=== PATIENT | male | born 1985 | race Hispanic/Latino ===

== ENCOUNTER 2020-01-14 12:47 | Inpatient (IN) | payer SELFPAY ==
[2020-01-14 13:57] LABS: Absolute Lymphocytes (CBC) 1.6 K/uL (0.7-4.9); Basophils % 0.2 % (0-1.3); Hematocrit 49.8 % (39.6-49.0); Lymphocytes % 8.4 % (15.3-44.8); MPV 9.4 fL (7.6-11.3); RBC Red Blood Cell Count 5.87 M/uL (4.33-5.43)
[2020-01-14 14:09] LABS: Albumin 4.3 g/dL (3.4-5.0); Bilirubin Direct 0.4 mg/dL (0-0.2); Bilirubin Total 1.3 mg/dL (0.2-1.0); Protein, Total 8.8 g/dL (6.4-8.2)
[2020-01-14] MEDS ORDERED: MORPHINE 4 MG/ML SYR ONE (14:12)
[2020-01-14] MEDS ORDERED: ACETAMINOPHEN 500 MG TAB ONE (14:13)
[2020-01-14] MEDS ORDERED: NA CHLORIDE 0.9% 1,000 ML ONE (14:13)
[2020-01-14] MEDS ORDERED: ONDANSETRON 4 MG/2 ML VIAL ONE (14:13)
[2020-01-14] MEDS ORDERED: CEFTRIAXONE/SWI 1gm 1 GM/10 ML SYR ONE (15:48)
[2020-01-14] MEDS ORDERED: METRONIDAZOLE 500mg IVPB 500 MG/100 ML BAG IV ONE (15:48)
--- NOTE | 2020-01-14 17:31 | RAD REPORT ---
EXAM DESCRIPTION: CT - Abdomen Pelvis W Contrast - 01/14/2020 4:55 pm CLINICAL HISTORY: abd pain COMPARISON: No comparisons TECHNIQUE: Biphasic, helical CT imaging of the abdomen and pelvis was performed following 100 ml non -ionic IV contrast. Oral contrast was given. All CT scans are performed using dose optimization technique as appropriate and may include automated exposure control or mA/KV adjustment according to patient size. FINDINGS: A 5 millimeter right lower lobe pulmonary nodule is present generally not significant in a patient this age. No pericardial effusion. The liver, spleen, and pancreas show no suspicious findings. Gallbladder and biliary tree are also wi thout suspicious finding. Symmetric renal function is seen with no hydronephrosis or suspicious renal mass. No pyelonephritis o r acute parenchymal process. No bladder abnormalities. No adrenal abnormalities. No gastric dilatation or gastric wall thickening. No dilated large or small bowel. The appendix is no rmal. No acute colon finding seen. In the posterior and bilateral fatty tissues adjacent to the anus there is increased soft tissue with congestion and edema of the fat. No clearly defined fluid collect ions seen. Developing perirectal abscess is most likely. No free air or pneumatosis. Elsewhere no in flammatory stranding. No hernia, mass or bulky lymphadenopathy. No suspicious bony findings. IMPRESSION: In the perianal fatty tissues along the posterior and each lateral margin of the anus, t here is increased soft tissue attenuation with stranding and edema of the fatty tissues. This is most likely a developing perirectal abscess. This may not yet be a clearly drainable fluid co llection.
--- NOTE | 2020-01-14 17:42 | EDPHYS ---
Physician Documentation [facility] Name: Oniel Harris Age: 34 yrs Sex: Male : 1985 Arrival Date: 01/14/2020 Time: 12:51 Bed 16 Private MD: ED Physician Ranjan Samuels HPI: 01/14 14:02 This 34 yrs old Male presents to ER via Ambulatory with complaints of rn Constipation, Abdominal Pain. 14:02 The patient presents with abdominal pain. rn 14:02 Onset: The symptoms/episode began/occurred 2 day(s) ago. The symptoms do not radiate. rn Associated signs and symptoms: Pertinent positives: constipation, fever, Pertinent negatives: blood in stools, testicular pain, vomiting blood. The symptoms are described as crampy, intermittent. Modifying factors: The symptoms are alleviated by nothing, the symptoms are aggravated by pressure. Severity of pain: At its worst the pain was moderate in the emergency department the pain is unchanged. The patient has not experienced similar symptoms in the past. Reports 2 days of fever, constipation, abd pain, and now rectal pain. Reports hurts to use bathroom. No blood in stool or when wipes. . Historical: - Allergies: 12:58 No Known Allergies; aj1 - Home Meds: 12:58 None [Active]; aj1 - PMHx: 12:58 None; aj1 - PSHx: 12:59 wrist surgery; aj1 - Immunization history:: Flu vaccine is not up to date. - Coronavirus screen:: The patient has NOT traveled to [place] in the past 14 days. - Social history:: Smoking status: Patient/guardian denies using tobacco. - Family history:: not pertinent. - Ebola Screening: : Patient denies travel to an Ebola-affected area in the 21 days before illness onset. - Hospitalizations: : No recent hospitalization is reported. ROS: 14:02 Constitutional: + fever Eyes: Negative for injury, pain, redness, and discharge, Neck: rn Negative for injury, pain, and swelling, Cardiovascular: Negative for chest pain, palpitations, and edema, Respiratory: Negative for shortness of breath, cough, wheezing, and pleuritic chest pain, Abdomen/GI: + abd pain and constipation, + rectal pain MS/Extremity: Negative for injury and deformity, Skin: Negative for injury, rash, and discoloration, Neuro: Negative for headache, weakness, numbness, tingling, and seizure. Exam: 14:02 Constitutional: This is a well developed, well nourished patient who is awake, alert, rn and in no acute distress. Head/Face: Normocephalic, atraumatic. Cardiovascular: Tachycardic, regular, intact distal pulses Respiratory: No increased work of breathing, no retractions or nasal flaring. Abdomen/GI: soft, mild lower abd tenderness, no reobund/distension, + perirectal tenderness 9 o'clock position on digital rectal exam, no external hemorrhoids Skin: Warm, dry MS/ Extremity: Pulses equal, no cyanosis. Neurovascular intact. Full, normal range of motion. Equal circumference. Neuro: Awake and alert, GCS 15, oriented to person, place, time, and situation. Cranial nerves II-XII grossly intact. Motor strength 5/5 in all extremities. Sensory grossly intact. Cerebellar exam normal. Normal gait. Vital Signs: 12:59 BP 144 / 80; Pulse 103; Resp 20; Temp 101.1; Pulse Ox 98% on R/A; Weight 105.69 kg (R); aj1 Height 5 ft. 8 in. (172.72 cm) (R); Pain 5/10; 13:51 BP 129 / 82; Pulse 103; Resp 17; Temp 103.2; Pulse Ox 96% ; lt1 14:44 BP 134 / 83; Pulse 103; Resp 20; Pulse Ox 95% on R/A; ph 16:00 BP 127 / 86; Pulse 91; Resp 18; Pulse Ox 96% on R/A; ph 16:23 Temp 99.1; ph 18:19 BP 121 / 68; Pulse 87; Resp 18; Temp 98.3; Pulse Ox 97% on R/A; ph 19:15 BP 119 / 61; Pulse 91; Resp 18; Pulse Ox 97% on R/A; ph 19:38 BP 106 / 60; Pulse 89; Resp 16; Pulse Ox 97% on R/A; lp1 12:59 Body Mass Index 35.43 (105.69 kg, 172.72 cm) aj MDM: 13:05 Patient medically screened. rn 17:39 Differential diagnosis: colitis, diverticulitis, perirectal abscess. Data reviewed: rn vital signs, nurses notes, lab test result(s), radiologic studies, CT scan, and as a result, I will admit patient. Counseling: I had a detailed discussion with the patient and/or guardian regarding: the historical points, exam findings, and any diagnostic results supporting the discharge/admit diagnosis, lab results, radiology results, the need for further work-up and treatment in the hospital. Response to treatment: the patient's symptoms have mildly improved after treatment, and as a result, I will admit patient. Admission orders: after a detailed discussion of the patient's condition and case, the admit orders are written by me. ED course: Consulted with Dr. Archer, requests abx, and NPO after midnight, ok to admit to his service. . 01/14 13:15 Order name: Basic Metabolic Panel rn 01/14 13:15 Order name: CBC with Diff rn 01/14 13:15 Order name: Hepatic Function rn 01/14 13:15 Order name: Lipase rn 01/14 13:23 Order name: Blood Culture Adult (2) rn 01/14 13:23 Order name: Lactate rn 01/14 13:23 Order name: Procalcitonin rn 01/14 14:02 Order name: Flu rn 01/14 14:04 Order name: Lactate; Complete Time: 14:20 EDNC 01/14 14:05 Order name: CBC with Automated Diff; Complete Time: 14:20 EDNC 01/14 14:12 Order name: Basic Metabolic Panel; Complete Time: 14:20 EDNC 01/14 14:12 Order name: Liver (Hepatic) Function; Complete Time: 14:20 EDNC 01/14 14:12 Order name: Lipase; Complete Time: 14:20 EDNC 01/14 14:49 Order name: Procalcitonin; Complete Time: 14:50 EDNC 01/14 13:15 Order name: IV Saline Lock; Complete Time: 13:18 rn 01/14 13:15 Order name: Labs collected and sent; Complete Time: 13:19 rn 01/14 13:15 Order name: CT Abd/Pelvis - PO and IV Contrast rn Administered Medications: 14:00 Drug: Tylenol 1000 mg Route: PO; ph 16:25 Follow up: Response: No adverse reaction ph 14:00 Drug: NS 0.9% 1000 ml Route: IV; Rate: 1000 ml; Site: left antecubital; ph 16:26 Follow up: Response: No adverse reaction; IV Status: Completed infusion ph 14:14 Drug: morphine 4 mg Route: IVP; Site: left antecubital; ph 16:24 Follow up: Response: No adverse reaction; Pain is decreased ph 15:30 Drug: Rocephin 1 grams Route: IV; Rate: calculated rate; Site: left antecubital; ph 16:26 Follow up: Response: No adverse reaction; IV Status: Completed infusion ph 15:45 Drug: Flagyl 500 mg Volume: 100 ml; Route: IVPB; Rate: 200 ml/hr; Infused Over: 30 ph mins; Site: left antecubital; 16:20 Follow up: Response: No adverse reaction; IV Status: Completed infusion ph Disposition: 01/14/20 17:41 Hospitalization ordered by Florian Archer for Inpatient Admission. Preliminary diagnosis is Perirectal abscess. - Bed requested for Telemetry/MedSurg (Inpatient). - Status is Inpatient Admission. lp1 - Condition is Stable. - Problem is new. - Symptoms have improved. Signatures: Dispatcher [employer] EDMS Maria Teresa Gao RN RN aj1 Chelsey Garcia ms, Roman, MD MD rn Pena, Laura, RN RN lp1 Melissa Bedoya RN RN ph Corrections: (The following items were deleted from the chart) 18:12 17:41 Hospitalization Ordered by Florian Archer MD for Inpatient Admission. Preliminary ms diagnosis is Perirectal abscess. Bed requested for Telemetry/MedSurg (Inpatient). Status is Inpatient Admission. Condition is Stable. Problem is new. Symptoms have improved. rn 20:01 18:12 01/14/2020 17:41 Hospitalization Ordered by Florian Archer MD for Inpatient lp1 Admission. Preliminary diagnosis is Perirectal abscess. Bed requested for Telemetry/MedSurg (Inpatient). Status is Inpatient Admission. Condition is Stable. Problem is new. Symptoms have improved. ms
--- NOTE | 2020-01-14 17:42 | ER ---
Nurse's Notes [facility] Name: Oniel Harris Age: 34 yrs Sex: Male : 1985 Arrival Date: 01/14/2020 Time: 12:51 Bed 16 Private MD: Diagnosis: Perirectal abscess Presentation: 01/14 12:53 Presenting complaint: Patient states: Via child care nurse [id number] 2 days ago he ate a spicy aj1 soup and since then he has not been able to have a bowel movement, so he drank hot milk, but now he is having a lot of rectal pain. States that he started running fever on Thursday, Patient reports right sided abdominal pain. Transition of care: patient was not received from another setting of care. Onset of symptoms was December 2019. Risk Assessment: Do you want to hurt yourself or someone else? Patient reports no desire to harm self or others. Initial Sepsis Screen: Does the patient meet any 2 criteria? Temp <36.0*C (96.8*F)) or > 38.3*C (100.9*F). HR > 90 bpm. Does the patient have a suspected source of infection? Yes: Acute abdominal pain. Care prior to arrival: None. 12:53 Method Of Arrival: Ambulatory aj1 12:53 Acuity: GUILLERMO 2 aj1 Triage Assessment: 12:59 General: Appears in no apparent distress. uncomfortable, Behavior is calm, cooperative, aj1 appropriate for age. Pain: Complains of pain in abdomen Pain currently is 5 out of 10 on a pain scale. Neuro: Level of Consciousness is awake, alert, obeys commands. Cardiovascular: Patient's skin is warm and dry. Respiratory: Airway is patent Respiratory effort is even, unlabored, Respiratory pattern is regular, symmetrical. GI: Reports lower abdominal pain, upper abdominal pain, nausea, vomiting. Historical: - Allergies: 12:58 No Known Allergies; aj1 - Home Meds: 12:58 None [Active]; aj1 - PMHx: 12:58 None; aj1 - PSHx: 12:59 wrist surgery; aj1 - Immunization history:: Flu vaccine is not up to date. - Coronavirus screen:: The patient has NOT traveled to [place] in the past 14 days. - Social history:: Smoking status: Patient/guardian denies using tobacco. - Family history:: not pertinent. - Ebola Screening: : Patient denies travel to an Ebola-affected area in the 21 days before illness onset. - Hospitalizations: : No recent hospitalization is reported. Screenin:45 Abuse screen: Denies threats or abuse. Denies injuries from another. Nutritional ph screening: No deficits noted. Tuberculosis screening: No symptoms or risk factors identified. Fall Risk None identified. Assessment: 13:45 General: Appears in no apparent distress. uncomfortable, well groomed, Behavior is ph calm, cooperative, appropriate for age, Reports fever for 2-3 days. Pain: Complains of pain in buttocks and abdomen. Neuro: Level of Consciousness is awake, alert, obeys commands, Oriented to person, place, time, situation. Cardiovascular: Capillary refill < 3 seconds in bilateral fingers Patient's skin is warm and dry. Respiratory: Airway is patent Respiratory effort is even, unlabored. GI: Abdomen is round non-distended, Reports lower abdominal pain, nausea, vomiting. GI: Reports rectal pain. : No signs and/or symptoms were reported regarding the genitourinary system. Derm:. Musculoskeletal: Circulation, motion, and sensation intact. Range of motion: intact in all extremities. 14:43 Reassessment: Patient appears in no apparent distress at this time. Patient and/or ph family updated on plan of care and expected duration. Pain level reassessed. Patient is alert, oriented x 3, equal unlabored respirations, skin warm/dry/pink. Pt resting quietly, awaiting CT scan. 16:15 Reassessment: Patient appears in no apparent distress at this time. Patient and/or ph family updated on plan of care and expected duration. Pain level reassessed. Patient is alert, oriented x 3, equal unlabored respirations, skin warm/dry/pink. 17:30 Reassessment: Patient appears in no apparent distress at this time. Patient and/or ph family updated on plan of care and expected duration. Pain level reassessed. Patient is alert, oriented x 3, equal unlabored respirations, skin warm/dry/pink. 18:30 Reassessment: Patient appears in no apparent distress at this time. Patient and/or ph family updated on plan of care and expected duration. Pain level reassessed. Patient is alert, oriented x 3, equal unlabored respirations, skin warm/dry/pink. 19:15 Reassessment: Patient appears in no apparent distress at this time. Patient is alert, lp1 oriented x 3, equal unlabored respirations, skin warm/dry/pink. Patient denies any needs at this time; aware of admission. Vital Signs: 12:59 BP 144 / 80; Pulse 103; Resp 20; Temp 101.1; Pulse Ox 98% on R/A; Weight 105.69 kg (R); aj1 Height 5 ft. 8 in. (172.72 cm) (R); Pain 5/10; 13:51 BP 129 / 82; Pulse 103; Resp 17; Temp 103.2; Pulse Ox 96% ; lt1 14:44 BP 134 / 83; Pulse 103; Resp 20; Pulse Ox 95% on R/A; ph 16:00 BP 127 / 86; Pulse 91; Resp 18; Pulse Ox 96% on R/A; ph 16:23 Temp 99.1; ph 18:19 BP 121 / 68; Pulse 87; Resp 18; Temp 98.3; Pulse Ox 97% on R/A; ph 19:15 BP 119 / 61; Pulse 91; Resp 18; Pulse Ox 97% on R/A; ph 19:38 BP 106 / 60; Pulse 89; Resp 16; Pulse Ox 97% on R/A; lp1 12:59 Body Mass Index 35.43 (105.69 kg, 172.72 cm) aj1 ED Course: 12:51 Patient arrived in ED. ag5 12:57 Triage completed. aj1 12:59 Arm band placed on. aj1 13:05 Ranjan Samuels MD is Attending Physician. rn 13:05 Melissa Bedoya, BRYAN is Primary Nurse. ph 13:15 Initial lab(s) drawn, by me, sent to lab. First set of blood cultures drawn by me, EKG lt1 done, by ED staff. 13:50 Inserted saline lock: 20 gauge in left antecubital area, using aseptic technique. lt1 14:45 Patient has correct armband on for positive identification. Placed in gown. Bed in low ph position. Call light in reach. Side rails up X 1. laborer bituminous paving on. Pulse ox on. NIBP on. 16:19 No provider procedures requiring assistance completed. ph 16:55 CT completed. Patient tolerated procedure well. Patient moved back from CT. mw3 17:39 Florian Archer MD is Hospitalizing Provider. rn 19:38 Patient admitted, IV remains in place. lp1 Administered Medications: 14:00 Drug: Tylenol 1000 mg Route: PO; ph 16:25 Follow up: Response: No adverse reaction ph 14:00 Drug: NS 0.9% 1000 ml Route: IV; Rate: 1000 ml; Site: left antecubital; ph 16:26 Follow up: Response: No adverse reaction; IV Status: Completed infusion ph 14:14 Drug: morphine 4 mg Route: IVP; Site: left antecubital; ph 16:24 Follow up: Response: No adverse reaction; Pain is decreased ph 15:30 Drug: Rocephin 1 grams Route: IV; Rate: calculated rate; Site: left antecubital; ph 16:26 Follow up: Response: No adverse reaction; IV Status: Completed infusion ph 15:45 Drug: Flagyl 500 mg Volume: 100 ml; Route: IVPB; Rate: 200 ml/hr; Infused Over: 30 ph mins; Site: left antecubital; 16:20 Follow up: Response: No adverse reaction; IV Status: Completed infusion ph Outcome: 17:41 Decision to Hospitalize by Provider. rn 19:36 Admitted to Tele room 412, with chart, Report called to BRYAN Dukes lp1 19:36 Condition: stable 19:36 Instructed on the need for admit. 20:01 Patient left the ED. lp1 Signatures: Maria Teresa Gao RN RN aj1 Ranjan Samuels MD MD rn Pena, Laura, RN RN lp1 Melissa Bedoya RN RN Bessy Urban mw3 Devaughn Resendiz Delmy Verdugo [facility]
[2020-01-14] MEDS ORDERED: MORPHINE 4 MG/ML SYR IV PRN (20:14)
[2020-01-14] MEDS: D5 0.45 NS 1,000 ML IV SCH (20:14)
[2020-01-14] MEDS ORDERED: ONDANSETRON 4 MG/2 ML VIAL IV PRN (20:14)
[2020-01-14] MEDS: Ciprofloxacin 200mg IV 200 MG/100 ML IV.SOLN. IV SCH (21:51)
[2020-01-14] MEDS ORDERED: ACETAMINOPHEN 325 MG TABLET PO PRN (22:36)
[2020-01-14 23:21] VITALS: BMI 35.4
[2020-01-15] MEDS ORDERED: NA CHLORIDE 0.9% 500 ML IV ONE (00:21)
[2020-01-15] MEDS: METRONIDAZOLE 500mg IVPB 500 MG/100 ML BAG IV SCH ×3 (00:29→16:14)
[2020-01-15] MEDS: D5 0.45 NS 1,000 ML IV SCH ×4 (04:14→20:14)
[2020-01-15 05:46] LABS: Absolute Lymphocytes (CBC) 1.8 K/uL (0.7-4.9); Basophils % 0.3 % (0-1.3); Hematocrit 43.2 % (39.6-49.0); Lymphocytes % 10.3 % (15.3-44.8); MPV 9.1 fL (7.6-11.3); RBC Red Blood Cell Count 5.03 M/uL (4.33-5.43)
[2020-01-15 06:02] LABS: Potassium 4.2 mmol/L (3.5-5.1)
[2020-01-15] MEDS ORDERED: Ringers Lactate 1,000 ML IV ONE (08:33)
[2020-01-15] MEDS: Ciprofloxacin 200mg IV 200 MG/100 ML IV.SOLN. IV SCH ×2 (09:00→20:24)
[2020-01-15] MEDS ORDERED: METRONIDAZOLE 500mg IVPB 500 MG/100 ML BAG IV ONE (09:37)
[2020-01-15] MEDS ORDERED: CIPROFLOXACIN 400mg IV 400 MG/200 ML BAG IV ONE (09:37)
[2020-01-15] MEDS ORDERED: MIDAZOLAM HCL 2 MG/2 ML INJ ONE (09:53)
[2020-01-15] MEDS ORDERED: ONDANSETRON 4 MG/2 ML VIAL ONE (09:53)
[2020-01-15] MEDS ORDERED: LIDOCAINE 1% MPF 5 ML VIAL ONE (09:53)
[2020-01-15] MEDS ORDERED: propofoL 200 MG/20 ML VIAL IV ONE (09:53)
[2020-01-15] MEDS ORDERED: FENTANYL CITR 100 MCG/2 ML ONE (09:53)
[2020-01-15] MEDS ORDERED: KETOROLAC 30 MG/ML INJ ONE (10:19)
[2020-01-15] MEDS ORDERED: BUPIVACAINE 0.5% PF 10 ML VIAL ONE (10:32)
--- NOTE | 2020-01-15 10:37 | P.OP ---
Preoperative diagnosis: Jessica-Rectal Abscess Postoperative diagnosis: same Primary procedure: EUA, Rigid Procto, I and D and Debridement Horseshoe Jessica- Rectal Abscess Anesthesia: General Estimated blood loss: min Specimen: pus Findings: as above Complications: None Transferred to: Recovery Room Condition: Good
--- NOTE | 2020-01-15 11:03 | OP ---
Date of Procedure: 01/15/2020 Surgeon: Florian Archer MD Preoperative Diagnosis: Perirectal abscess. Postoperative Diagnosis: Perirectal abscess. Procedures: Exam under anesthesia, rigid proctoscopy, incision and drainage and debridement of a hor seshoe perirectal abscess. Estimated Blood Loss: Minimal. Specimens: Pus. Findings: As above. Anesthesia: General. Complications: None. Disposition: Patient tolerated the procedure, was in stable condition and taken to Recovery in good general condition. Procedure In Detail: The patient was brought to the OR and placed in supine position. General anest hesia was begun. Patient was prepped and draped in usual sterile fashion in the lithotomy position. Exam under anesthesia revealed some induration toward the posterior midline on the left side and rig id proctoscopy not reveal any other evidence of disease. As I was unsure exactly where the abscess w as, we used 18-gauge needle and 10 mL syringe and in the posterior midline I was able to aspirate it. The incision was made slightly on the left side. Subcutaneous tissue divided. Then, there was a h orseshoe abscess with large amount of pus. Under pressure, it was evacuated, it was fairly deep. Cu ltures were done. Wound irrigated. Bleeding controlled with cautery. The wet-to-dry normal saline dressing change applied. Marcaine 0.5% was infiltrated for postop pain control. Patient tolerated the procedure, was in stable condition and taken to Recovery in good general condition. /MODL Voice ID: [id number] Report ID: [id number]
[2020-01-15] MEDS ORDERED: HYDROMORPHONE HCL 1 MG/ML INJ IV PRN (11:05)
--- NOTE | 2020-01-15 11:12 | PREOPHP ---
Date of Admission: 01/14/2020 Reason: Perirectal pain. History Of Present Illness: Patient is a 34-year-old gentleman who came to the emergency room with 3 -day history of pain in the perianal region, fevers. No drainage. No bright red blood per rectum. No diarrhea or constipation. No nausea or vomiting. No sore throat, runny nose, cough, headaches, o r dizziness. No chest pain. Review of Systems: Otherwise unremarkable. Past Medical History: Negative. Past Surgical History: Wrist surgery. Allergies: NO ALLERGY. Social History: Patient does not smoke. Drinks occasionally. Family History: Noncontributory. Physical Examination: Vital Signs: Stable. His T-max was 100.5, currently 98.2. General: He is awake, alert, and oriented x3. Head And Neck: Cranial nerves 2 through 12 are grossly within normal limits. No neck masses. No JV D. Throat clear. Neck supple. Chest: Clear. Heart: S1 and S2. Abdomen: Soft, nondistended, nontender. Positive bowel sounds. Extremities: Neurovascularly intact. Neurologic: Nonfocal. Rectal: Reveals tenderness, induration, and developing fluctuance in the left perirectal region, martha rly deep. Laboratory Data: White count is 17,000 with a left shift. Chemistry reviewed, unremarkable. Imaging: CT of the abdomen and pelvis reviewed. It shows perianal fatty tissue along with posterior ly on each lateral of the anus, there is increased soft tissue attenuation with stranding and edema o f the fatty tissue, most likely developing perirectal abscess. This was done yesterday. Assessment: Perirectal abscess. Plan: Admit, n.p.o., IV fluid, IV antibiotic, to the OR for exam under anesthesia, rigid proctoscopy , and incision drainage and debridement of left perirectal abscess. Patient understands the risks, b enefits, and alternatives and agrees to procedure. /MODL Voice ID: [id number]
[2020-01-15] MEDS ORDERED: INFLUENZA VACCINE (for 3y+) 0.5 ML DOSE IMVAC ONE (15:00)
[2020-01-15] MEDS ORDERED: ACETAMINOPHEN 325 MG TABLET PO PRN (15:58)
[2020-01-15] MEDS: CODEINE 30MG/APAP 300MG TAB PO PRN (20:23)
[2020-01-16] MEDS: D5 0.45 NS 1,000 ML IV SCH ×4 (00:15→21:23)
[2020-01-16] MEDS: METRONIDAZOLE 500mg IVPB 500 MG/100 ML BAG IV SCH ×3 (00:16→16:12)
[2020-01-16] MEDS: CODEINE 30MG/APAP 300MG TAB PO PRN ×2 (00:41→12:02)
[2020-01-16 06:07] LABS: Absolute Lymphocytes (CBC) 1.4 K/uL (0.7-4.9); Basophils % 0.3 % (0-1.3); Lymphocytes % 12.2 % (15.3-44.8); RBC Red Blood Cell Count 4.93 M/uL (4.33-5.43)
[2020-01-16] MEDS: Ciprofloxacin 200mg IV 200 MG/100 ML IV.SOLN. IV SCH ×2 (08:28→21:24)
--- NOTE | 2020-01-16 08:55 | EKG ---
Test Date: 2020-01-14 Test Time: 13:33:16 Hairspring Assembler: PIYUSHT MEASUREMENT RESULTS: Intervals: Rate: 100 IL: 142 QRSD: 100 QT: 318 QTc: 410 [place]: P: 33 IL: 142 QRS: 47 T: 34 INTERPRETIVE STATEMENTS: Normal sinus rhythm Normal ECG No previous ECG available for comparison Electronically Signed On 01-16-20 08:55:22 STEREOTYPER APPRENTICE by Jonathan Sanders
--- NOTE | 2020-01-16 13:10 | PN ---
Date of Progress Note: 01/16/2020 Subjective: Patient is awake, alert. Feels like pain is better. White count is 11.6. Bowels are s table. He is afebrile. Dressing is clean, dry, and intact. Assessment: Status post exam under anesthesia, rigid proctoscopy, incision, drainage, debridement of horseshoe perirectal abscess. Recommendations: Continue IV antibiotics for another 24 hours, parenteral pain management. Teach fa pablo how to change dressing. Probable discharge tomorrow. /MODL Voice ID: [id number] Report ID: [id number]
[2020-01-17 00:15] VITALS: O2SAT 97
[2020-01-17] MEDS: METRONIDAZOLE 500mg IVPB 500 MG/100 ML BAG IV SCH ×2 (01:48→10:08)
[2020-01-17] MEDS: D5 0.45 NS 1,000 ML IV SCH (10:08)
[2020-01-17] MEDS: Ciprofloxacin 200mg IV 200 MG/100 ML IV.SOLN. IV SCH (10:08)
[2020-01-17 10:30] VITALS: TEMP 97.3
[2020-01-17 14:15] VITALS: BP 112/70
--- NOTE | 2020-01-17 18:29 | DS ---
Date of Discharge: 01/17/2020 Admitting Diagnosis: Perirectal abscess. Discharge Diagnosis: Perirectal abscess. Procedure Performed: Exam under anesthesia, rigid proctoscopy, incision drainage and debridement of perirectal abscess. Hospital Course: Patient is a 34-year-old gentleman who was admitted on Thursday. IV antibiotics we re started, taken to the OR on Thursday morning, underwent the aforementioned procedure. Postoperative ly, he was tolerating diet, ambulating. Pain controlled with p.o. pain medication. Afebrile. There fore, patient will be discharged to home. Disposition: Home. Condition: Stable. Discharge Instructions: Resume home medications and diet. Activity as tolerated. No heavy lifting. Wet-to-dry normal saline dressing changes daily. The family was taught how to do that. Cipro 500 mg p.o. q.12, Flagyl 500 mg p.o. q.12, Flagyl 500 mg p.o. q.8, Tylenol No. 3 one tablet p.o. q.4 p.r. n. pain. /MODL Voice ID: [id number] Report ID: [id number]
== END 2020-01-17 13:21 | disposition home or self-care (01) | DRG 395 ==
LOC: ER 12:47 → ERHOLD 17:43 → 4TH 19:38
PROVIDERS: ADMIT Surgery; ATTEND Surgery
PROC: 0D9P8ZX Drainage of Rectum, Via Natural or Artificial Opening Endoscopic, Diagnostic (ICD-10-PCS; principal; 2020-01-15 09:00)
DX: K61.1 Rectal abscess (principal)
CPT/HCPCS: 36415; 74177; 80048; 80076; 83605; 83690; 84145; 85025; 87040; 87070; 87075; 87185; 87205; 87804; 93005; 96361; 96365; 96368; 96375; 99285; J0696; J0744; J2250; J2405; J2704; J3010; J7030; J7040; J7120; J7799; Q9967